=== PATIENT | female | born 1990 | race African-American/Black ===

== ENCOUNTER 2021-09-26 07:53 | Emergency (ER) | payer OTHER ==
[~2021-09-26 07:53] MED LIST: AMOXICILLIN875 MG PO
[2021-09-26] MEDS ORDERED: NORCO 5-325 TA1 EACH PO (09:18)
== END 2021-09-26 09:29 | disposition home or self-care (01) ==
LOC: FER 07:53
DX: M25.461 Effusion, right knee (principal); M23.91 Unspecified internal derangement of right knee
CPT/HCPCS: 73564

== ENCOUNTER → 2021-10-25 | Day surgery (SDC) | payer OTHER ==
[~2021-10-25] VITALS: Ht 157.5 cm; Wt 77.1 kg
[~2021-10-25] MED LIST changes: +IBUPROFEN800 MG PO; +NORCO 5-325 TA1 EACH PO; +[UNRECOGNIZED DRUG - OTHER] PO
[2021-10-25 07:16] LABS: HCG (URINE) SCREEN NEGATIVE (NEGATIVE)
== END | disposition home or self-care (01) ==
LOC: FAS 07:02
PROVIDERS: Anesthesiology
DX: S83.511A Sprain of anterior cruciate ligament of right knee, initial encounter (principal); S83.211A Bucket-handle tear of medial meniscus, current injury, right knee, initial encounter; X58.XXXA Exposure to other specified factors, initial encounter; Y92.9 Unspecified place or not applicable
CPT/HCPCS: 84703; 93005; C1713; C1762; J0690; J1170; J2250; J2405; J2704; J2795; J3010; J7120

== ENCOUNTER 2021-11-20 01:26 | Emergency (ER) | payer OTHER ==
[2021-11-20] MEDS ORDERED: OXY-IR 5MG5 MG PO (05:21)
[2021-11-20] MEDS ORDERED: ONDANSETRON ODT4 MG PO (05:26)
== END 2021-11-20 06:10 | disposition home or self-care (01) ==
LOC: FER 01:26
DX: M27.3 Alveolitis of jaws (principal); K05.219 Aggressive periodontitis, localized, unspecified severity
CPT/HCPCS: J1170; Q0163

== ENCOUNTER 2022-02-19 17:26 | Emergency (ER) | payer OTHER ==
[~2022-02-19 17:26] MED LIST changes: +ONDANSETRON ODT4 MG PO; +OXY-IR 5MG5 MG PO
[2022-02-19] MEDS ORDERED: OXY-IR 5MG5 MG PO (20:10)
== END 2022-02-19 20:20 | disposition home or self-care (01) ==
LOC: FER 17:26
DX: T15.91XA Foreign body on external eye, part unspecified, right eye, initial encounter (principal); Z28.310 Unvaccinated for COVID-19
CPT/HCPCS: J1170; J1885

== ENCOUNTER 2022-05-06 12:33 | Emergency (ER) | payer OTHER ==
[2022-05-06 14:55] LABS: CORONAVIRUS 2019 SARS-COV-2 NEGATIVE (NEGATIVE); INFLUENZA A NAA NEGATIVE (NEGATIVE)
[2022-05-06] MEDS ORDERED: MAGICMW SSW (15:23)
[2022-05-06] MEDS ORDERED: ONDANSETRON ODT4 MG PO (15:24)
== END 2022-05-06 15:46 | disposition home or self-care (01) ==
LOC: FER 12:33
PROVIDERS: Physician Assistant
DX: K12.0 Recurrent oral aphthae (principal); Z20.822 Contact with and (suspected) exposure to COVID-19; Z28.310 Unvaccinated for COVID-19
CPT/HCPCS: 87880; 99283; U0002

== ENCOUNTER 2022-06-02 07:44 | Emergency (ER) | payer OTHER ==
[~2022-06-02 07:44] MED LIST changes: +MAGICMW SSW
[2022-06-02] MEDS ORDERED: NORCO 5-325 TA1 EACH PO (09:13)
== END 2022-06-02 09:34 | disposition home or self-care (01) ==
LOC: FER 07:44
DX: M23.91 Unspecified internal derangement of right knee (principal); M25.461 Effusion, right knee; W01.0XXA Fall on same level from slipping, tripping and stumbling without subsequent striking against object, initial encounter; Y92.89 Other specified places as the place of occurrence of the external cause; Y99.0 Civilian activity done for income or pay
CPT/HCPCS: 73560